=== PATIENT | female | born 1990 ===

== ENCOUNTER 2024-06-25 11:59 | Inpatient (IN) | payer OTHER ==
[~2024-06-25] VITALS: Ht 30.5 cm; Wt 65.8 kg
[2024-06-25 11:48] VITALS: BP 130/87
[~2024-06-25 11:59] MED LIST: CRYSELLE-28 TA1 EACH PO
[2024-07-01] MEDS ORDERED: CEFTRIAXONE SODIUM 2,000 MG VIAL ONE (13:20)
[2024-07-01] MEDS ORDERED: METRONIDAZOLE/SODIUM CHLORIDE 500 MG/100 ML PIGGYBACK IV ONE (13:20)
[2024-07-01] MEDS ORDERED: VISTASEAL DUAL APPICATOR 1 EACH APPL TOP ONE (13:20)
[2024-07-01] MEDS ORDERED: POVIDONE-IODINE 118 ML BOTT TOP ONE (13:20)
[2024-07-01] MEDS ORDERED: THROMBIN,HU/FIBRINOGEN/CALCIUM 10 ML SYRINGE TOP ONE (13:20)
[2024-07-01] MEDS ORDERED: CELECOXIB 200 MG CAPSULE PO STA (16:54)
[2024-07-01] MEDS ORDERED: RINGERS SOLUTION,LACTATED 1,000 ML IV SCH (17:00)
[2024-07-01 17:42] LABS: HEMATOCRIT 38.3 % (36.0-45.00); HEMOGLOBIN 12.1 g/dL (12.0-15.00); MEAN CELL VOLUME 75.9 fL (80.00-100.00); MEAN CORPUSCULAR HGB CONC 31.6 g/dl (32.0-36.0); PLATELET COUNT 284 K/uL (150-450); RED BLOOD COUNT 5.04 M/uL (4.00-6.00); RED CELL DISTRIBUTION WIDTH 17.3 % (11.5-14.5)
[2024-07-01] MEDS ORDERED: ONDANSETRON HCL 2 MG/ML VIAL IV SCH (18:00)
[2024-07-01] MEDS ORDERED: ACETAMINOPHEN 325 MG TABLET PO SCH (18:00)
[2024-07-01 18:48] LABS: CALCIUM 8.6 mg/dL (8.5-10.1); CREATININE SERUM 0.62 mg/dL (0.55-1.02); GFR 111.55; POTASSIUM 3.66 mEq/L (3.5-5.1)
[2024-07-01] MEDS ORDERED: GABAPENTIN 100 MG CAPSULE PO SCH (21:00)
[2024-07-01] MEDS ORDERED: GABAPENTIN 100 MG CAPSULE PO ONE (22:28)
[2024-07-02 04:20] VITALS: BP 130/87
[2024-07-02 04:25] LABS: HEMATOCRIT 37.2 % (36.0-45.00); HEMOGLOBIN 12.2 g/dL (12.0-15.00); MEAN CELL VOLUME 74.9 fL (80.00-100.00); MEAN CORPUSCULAR HEMOGLOBIN 24.5 pg (27.00-32.0); MEAN CORPUSCULAR HGB CONC 32.8 g/dl (32.0-36.0); PLATELET COUNT 280 K/uL (150-450); RED BLOOD COUNT 4.97 M/uL (4.00-6.00); RED CELL DISTRIBUTION WIDTH 17.5 % (11.5-14.5)
[2024-07-02 04:51] LABS: CALCIUM 8.5 mg/dL (8.5-10.1); CREATININE SERUM 0.52 mg/dL (0.55-1.02); GFR 136.65; POTASSIUM 3.81 mEq/L (3.5-5.1)
[2024-07-02 08:32] VITALS: BP 121/77
[2024-07-02 16:35] VITALS: BP 111/76
== END 2024-07-02 16:42 | disposition home or self-care (01) | DRG 743 ==
LOC: O/R 07-01 06:02 → OB/GYN 07-01 06:02 → SURH 07-01 10:45 → O/R 07-02 00:35 → OB/GYN 07-02 02:47
PROVIDERS: Surgery; ADMIT Obstetrics & Gynecology Gynecology; ATTEND Obstetrics & Gynecology Gynecology
PROC: 0DNN4ZZ Release Sigmoid Colon, Percutaneous Endoscopic Approach (ICD-10-PCS; 2024-07-01)
PROC: 0TN64ZZ Release Right Ureter, Percutaneous Endoscopic Approach (ICD-10-PCS; 2024-07-01)
PROC: 0DNW4ZZ Release Peritoneum, Percutaneous Endoscopic Approach (ICD-10-PCS; 2024-07-01)
PROC: 0DN84ZZ Release Small Intestine, Percutaneous Endoscopic Approach (ICD-10-PCS; 2024-07-01)
PROC: 0DTJ4ZZ Resection of Appendix, Percutaneous Endoscopic Approach (ICD-10-PCS; 2024-07-01)
PROC: 0UN14ZZ Release Left Ovary, Percutaneous Endoscopic Approach (ICD-10-PCS; principal; 2024-07-01 10:45)
PROC: 0UT74ZZ Resection of Bilateral Fallopian Tubes, Percutaneous Endoscopic Approach (ICD-10-PCS; 2024-07-01 10:45)
DX: N80.203 Endometriosis of bilateral fallopian tubes, unspecified depth (principal); N80.123 Deep endometriosis of bilateral ovaries; K66.0 Peritoneal adhesions (postprocedural) (postinfection); K38.8 Other specified diseases of appendix